=== PATIENT | female | born 1990 ===

== ENCOUNTER 2020-02-27 14:45 | Emergency (ER) | payer SELFPAY ==
[2020-02-27 15:29] VITALS: BP 133/81
--- NOTE | 2020-02-27 16:01 | Event Note ---
ED Screening Note Date of service: 02/27/20 Time: 15:59 ED Screening Note: This initial assessment/diagnostic orders/clinical plan/treatment(s) is/are subject to change based on patients health status, clinical progression and re- assessment by fellow clinical providers in the ED. Further treatment and workup at subsequent clinical providers discretion. Patient/guardian urged not to elope from the ED as their condition may be serious if not clinically assessed and managed. Initial orders include:
== END 2020-02-27 15:59 | disposition left against medical advice (07) ==
LOC: ED 14:45
DX: R10.9 Unspecified abdominal pain (principal); Z53.21 Procedure and treatment not carried out due to patient leaving prior to being seen by health care provider
CPT/HCPCS: 82962